=== PATIENT | male | born 1955 | race Caucasian/White ===

== ENCOUNTER 2019-07-17 18:58 | Inpatient (IN) | payer MEDICARE, OTHER, SELFPAY ==
[~2019-07-17] VITALS: Ht 165.1 cm; Wt 86.2 kg
[2019-07-17 19:00] VITALS: BP_SYST 138
--- NOTE | 2019-07-17 19:02 | NUR ---
Patient triaged and placed in tent area. VSS and patient appears in no acute distress at this time and MD notified of need for MSE.
--- NOTE | 2019-07-17 19:47 | NUR ---
ER Dr. Estes at bedside examining patient.
--- NOTE | 2019-07-17 20:01 | NUR ---
Patient to ER bed 07 to gown for evaluation. Side rails up. Report given to TAD Bowser
--- NOTE | 2019-07-17 20:20 | NUR ---
Patient alert and oriented x4 complaining of shortness of breath, left sided chest pain that started on 07/11/19 after his liver surgery. Patient states he came into today because his chest pain worsened and he woke up this morning at 230am with night sweats and a fever. His pain is rated at 5 out of 10 and feels sharp and worsens when he moves around. Patient arrived at the ER today with a fever of 100.3. Patient has a history of liver cirrhosis and liver cancer. Patient was tested for COVID 19 and received results negative on tuesday night. Patient denies cough. No other medical complaints at this time. Will continue to monitor.
--- NOTE | 2019-07-17 20:25 | NUR ---
# 18 gauge angiocath placed to RFA. Use of asceptic technique. Opsite placed over site. Blood return noted. Blood, blood culture, and lactic for lab drawn from site. Flushed with 10 cc of normal saline. No evidence of infiltration noted. Patient tolerated well.
--- NOTE | 2019-07-17 20:35 | NUR ---
COVID test swab done and sent to lab.
[2019-07-17 21:21] LABS: BASOPHILS % (AUTO) 0.5 % (0.0-2.0); EOSINOPHILS # (AUTO) 0.1 K/uL (0.0-0.4); EOSINOPHILS % (AUTO) 1.7 % (0.0-4.0); HEMATOCRIT 37.7 % (36-54); HEMOGLOBIN 12.7 g/dL (14.0-18.0); LYMPHOCYTES # (AUTO) 0.9 K/uL (1.0-5.5); LYMPHOCYTES % (AUTO) 16.2 % (20.5-51.5); MEAN CORPUSCULAR HEMOGLOBIN 29 pg (27-31); MEAN CORPUSCULAR HGB CONC 34 % (32-36); MEAN CORPUSCULAR VOLUME 87 fL (79.0-98.0); MONOCYTES # (AUTO) 0.8 K/uL (0.0-1.0); NEUTROPHILS % (AUTO) 68.6 % (40.0-70.0); PLATELET COUNT (AUTO) 149 K/uL (130-430); RED BLOOD CELL COUNT(AUTO) 4.33 MIL/uL (4.2-6.2); RED CELL DISTRIBUTION WIDTH 13.9 % (9.0-15.0); WHITE BLOOD COUNT (AUTO) 5.8 K/uL (4.8-10.8)
[2019-07-17 21:27] LABS: CALCIUM 8.8 mg/dL (8.4-11.0); CREATININE 0.91 mg/dL (0.55-1.30); POTASSIUM 3.9 mmol/L (3.5-5.1)
[2019-07-17 21:33] LABS: ALBUMIN 3.8 g/dL (3.4-4.8); C-REACTIVE PROTEIN QUANT 3.4 mg/dL (0-0.5); TOTAL BILIRUBIN 1.3 mg/dL (0.0-1.0)
[2019-07-17 21:45] LABS: PROTHROMBIN TIME 10.4 SECS (9.5-12.5)
[2019-07-17] MEDS ORDERED: AZITHROMYCIN 500 MG in NS 250 ML IV ONE (21:45)
[2019-07-17] MEDS ORDERED: PIPERACILLIN/TAZO 3.375 GM in NS 50 ML IV ONE (21:45)
[2019-07-17 21:59] LABS: BILIRUBIN,URINE NEGATIVE (NEGATIVE); BLOOD, URINE NEGATIVE (NEGATIVE); CLARITY/URINE CLEAR (CLEAR); COLOR,URINE YELLOW (YELLOW); GLUCOSE,URINE NEGATIVE (NEGATIVE); KETONES,URINE NEGATIVE (NEGATIVE); LEUKOCYTE ESTERASE ,URINE NEGATIVE (NEGATIVE); NITRITE, URINE NEGATIVE (NEGATIVE); PROTEIN URINE NEGATIVE (NEGATIVE); UROBILINOGEN,URINE 0.2 (0.2-1.0)
[2019-07-17] MEDS ORDERED: AZITHROMYCIN 500 MG/VIAL (ZITHROMAX) IV ONE (22:11)
[2019-07-17] MEDS ORDERED: PIPERACILLIN/TAZOBACTAM 3.375 GM/VIAL (ZOSYN) IV ONE (22:11)
[2019-07-17] MEDS ORDERED: SPIRIVA INH (22:17)
[2019-07-17] MEDS ORDERED: ALBMDI INH (22:17)
[2019-07-17] MEDS ORDERED: LOSA50TA3 PO (22:17)
[2019-07-17] MEDS ORDERED: DICL100G19 TP (22:23)
[2019-07-17] MEDS ORDERED: MULT-1089 PO (22:23)
[2019-07-17] MEDS ORDERED: OSCD500 PO (22:23)
[2019-07-17] MEDS ORDERED: ACET-2165 PO (22:23)
--- NOTE | 2019-07-17 22:25 | NUR ---
Medication reconciliation completed with information provided by Shantaiser Aubrey. Any prior medication reconciliation on file was reviewed and corrected.
[2019-07-17] MEDS ORDERED: NICO-681 TD (22:30)
--- NOTE | 2019-07-17 22:31 | NUR ---
Patient's code status is full code paperwork completed and placed in chart.
[2019-07-17] MEDS ORDERED: TRAM50TA2 PO (22:35)
[2019-07-17] MEDS ORDERED: SENN-278 PO (22:35)
[2019-07-17] MEDS ORDERED: ONDA4TAB5 PO (22:35)
[2019-07-17] MEDS ORDERED: FLUT1BLS14 PO (22:35)
--- NOTE | 2019-07-17 23:38 | NUR ---
Patient will be admitted to care of Dr. Landaverde. Admitted to tele unit. Will go to room 126B. Belongings list completed. Complete and up to date summary report printed. SBAR report to be given at bedside with opportunity for questions.
[2019-07-17] MEDS ORDERED: ALBUTEROL MDI INHALATION 8 GM INH INH PRN (23:45)
--- NOTE | 2019-07-17 23:45 | NUR ---
MRSA collected and sent to the lab.
--- NOTE | 2019-07-18 00:09 | NUR ---
Patient is sitting comfortably in bed talking on the phone. Vital signs stable.
[2019-07-18] MEDS ORDERED: traMADol HCL HCL 50 MG TABLET (ULTRAM) PO PRN (00:15)
[2019-07-18] MEDS ORDERED: ACETAMINOPHEN 650 MG/20.3 ML UDC PO PRN (00:15)
[2019-07-18] MEDS ORDERED: ALBUTEROL MDI INHALATION 8 GM INH INH SCH (01:00)
--- NOTE | 2019-07-18 01:20 | NUR ---
ADMISSION: The patient, SUSHILA MURPHY, 63 y/o, M admitted by ARMAND DELAROSA MD, was given written information regarding hospital policies, unit procedures and contact persons. Valuables were checked and . Addendum: 07/18/19 at 0122 by Aspen Calderón RN Disregard above notes.
--- NOTE | 2019-07-18 01:30 | NUR ---
ON PHONE WITH FRIEND: Patient is currently sitting in a chair at bedside on the phone with his friend. No acute distress noted. No new needs at this time. Will continue to monitor. Addendum: 07/19/19 at 0304 by Isadora Mcfarland RN entered on the wrong date
--- NOTE | 2019-07-18 01:34 | NUR ---
Transfer to tele via ACLS protocol. Licensed nurse present. IV present no signs or symptoms of infiltration.
--- NOTE | 2019-07-18 02:03 | NUR ---
ADMISSION NOTE Received patient from ER via bren, received report from Mague MISHRA. Patient admitted with diagnosis of PNEUMONIA, FEVER R/O COVID. Patient oriented to hospital routine, call light, toileting and safety-patient verbalized understanding. ADMIT NOTE Received pt from ER to the floor with a diagnosis of []. Admission process initiated. patient oriented to pain management, safety and call light-teach back done.
--- NOTE | 2019-07-18 02:30 | NUR ---
Initial RN notes Received pt from ED via bren. Pt AAOx4, VSS, afrebrile. O2 sat 94-95% on room air. No acute distress. Pt denies any chest pain but c/o slight sob. Abd scars noted and R. lower abd bruise noted. IV saline lock R. FA 18G good blood return. Oriented to room/call light use, pt verbalized understanding. CAll light within reach. Bed low, locked, siderails up x2. To monitor.
[2019-07-18 02:45] VITALS: BP_SYST 144
--- NOTE | 2019-07-18 04:08 | NUR ---
CONSULTATION PAGED/CALLED Reason for Consultation: FEVER,PNA,R/O COVID Person Who was Notified: RON Consulting Physician: Organ Builder Specialty: Ordering Physician:
[2019-07-18] MEDS ORDERED: PIPERACILLIN/TAZOBACTAM 3.375 GM/VIAL (ZOSYN) IV ONE (05:48)
--- NOTE | 2019-07-18 05:57 | NUR ---
I PAGED DR. MOSS HE IS AWARE OF THE CONSULT.
[2019-07-18] MEDS ORDERED: PIPERACILLIN/TAZO 3.375 GM in NS 50 ML IV SCH (06:00)
--- NOTE | 2019-07-18 06:00 | NUR ---
Closing notes Pt AAO, ambulated to the bathroom, pt states she had a BM and urinated. No c/o pain or sob. IV antibiotic administered at ordered rate R. FA 18G good blood return. Call light within reach. Bed low, locked, siderails up x2. To endorse to AM nurse.
[2019-07-18 07:04] LABS: BASOPHILS % (AUTO) 0.5 % (0.0-2.0); EOSINOPHILS # (AUTO) 0.1 K/uL (0.0-0.4); EOSINOPHILS % (AUTO) 1.3 % (0.0-4.0); HEMATOCRIT 38.2 % (36-54); HEMOGLOBIN 12.9 g/dL (14.0-18.0); LYMPHOCYTES # (AUTO) 0.6 K/uL (1.0-5.5); LYMPHOCYTES % (AUTO) 12.2 % (20.5-51.5); MEAN CORPUSCULAR HEMOGLOBIN 29 pg (27-31); MEAN CORPUSCULAR HGB CONC 34 % (32-36); MEAN CORPUSCULAR VOLUME 87 fL (79.0-98.0); MONOCYTES # (AUTO) 0.8 K/uL (0.0-1.0); MONOCYTES % (AUTO) 17.4 % (1.7-9.3); NEUTROPHILS # (AUTO) 3.1 K/uL (1.8-7.7); NEUTROPHILS % (AUTO) 68.6 % (40.0-70.0); PLATELET COUNT (AUTO) 133 K/uL (130-430); RED BLOOD CELL COUNT(AUTO) 4.39 MIL/uL (4.2-6.2); RED CELL DISTRIBUTION WIDTH 14.1 % (9.0-15.0); WHITE BLOOD COUNT (AUTO) 4.6 K/uL (4.8-10.8)
--- NOTE | 2019-07-18 07:20 | NUR ---
RECEIVED PATIENT AAOX 4. VITALS SIGNS STABLE. AFEBRILE LUNGS BILATERALLY CLEAR. ABDOMEN SOFT AND NON DISTENDED. AMBULATORY GOES TO THE BATHROOM. WILL CONTINUE TO MONITOR PATIENTS STATUS. HAS IV ACCESS ON THE RT FOREARM #22. SALINE LOCK. BED LOW POSITION, ALARMED AND LOCKED. WILL CONTINUE TO MONITOR PATIENTS STATUS.
[2019-07-18 07:33] LABS: ALBUMIN 3.5 g/dL (3.4-4.8); CALCIUM 8.9 mg/dL (8.4-11.0); CREATININE 0.99 mg/dL (0.55-1.30); POTASSIUM 4.1 mmol/L (3.5-5.1); TOTAL BILIRUBIN 1.6 mg/dL (0.0-1.0)
[2019-07-18 08:00] VITALS: BP_SYST 150
--- NOTE | 2019-07-18 08:00 | NUR ---
WENT TO THE BATHROOM AND VOIDED X 2.
[2019-07-18 08:27] LABS: THYROID STIMULATING HORMONE 1.25 uIu/mL (0.34-4.82)
[2019-07-18] MEDS: FAMOTIDINE 20 MG TABLET PO SCH (08:35)
[2019-07-18] MEDS: NICOTINE 21 MG/24 HR PATCH.TD24 TD SCH (08:35)
[2019-07-18] MEDS: LOSARTAN POTASSIUM 50 MG TABLET (COZAAR) PO SCH (08:35)
[2019-07-18 08:36] LABS: ERYTHROCYTE SEDIMENTATION RATE 18 MM/HR (0-15)
--- NOTE | 2019-07-18 09:00 | NUR ---
MEDS DUE GIVEN ORDERED.
--- NOTE | 2019-07-18 11:54 | NUR ---
Case mgt: Rec'd a call from Giuliano Garzon case management coordinator at [phone] requesting clinical update-Duran is aware pt is Covid-pending results status in isolation and asked if pt is stable for transfer to contracted hospital-if so, ask if pt is agreeable for transfer and fax transfer order to him at [phone]--I s/w pharmacist in charge Zeny about this information-She will call Dr. Landaverde and find out if pt is agreeable for transfer to contracted hospital--radiology is making CD and I will prepare transfer packet for nursing unit--KHUSHI MISHRA
[2019-07-18] MEDS ORDERED: cefTRIAXone 1 GM in D5W 50 ML IV SCH (12:00)
[2019-07-18] MEDS ORDERED: ENOXAPARIN SODIUM 40 MG/0.4 ML SYRINGE SUBCUT ONE (12:00)
--- NOTE | 2019-07-18 12:00 | NUR ---
NO SOB NOR PAIN NOR CHEST PAIN NOTED. NO OXYGEN
[2019-07-18] MEDS ORDERED: AZITHROMYCIN 500 MG in NS 250 ML IV SCH (13:00)
--- NOTE | 2019-07-18 13:30 | NUR ---
SITTING ON THE CHAIR WHILE EATING LUNCH. IV ANTIBIOTIC GIVEN.
[2019-07-18 13:36] VITALS: BP_SYST 150
--- NOTE | 2019-07-18 13:43 | NUR ---
Case mgt: S/W christ Garzon from [place]--per charge nurse Zeny, pt/ indicated pt had a negative Covid test at [place] a few days ago. Duran faxed me those results, which were taken to charge nurse Zeny-Mayra said she will call Dr. Landaverde with those results and f/u for transfer order, and Mayra indicates pt/ agreeable to transfer to [facility]. TAD
[2019-07-18] MEDS ORDERED: COMMUNICATION ORDER XX ONE (14:45)
[2019-07-18] MEDS ORDERED: BUPR1FIL SL (14:47)
--- NOTE | 2019-07-18 15:11 | NUR ---
PATIENT SLEEPING VERBALIZED HE IS VERY TIRED. METHADONE BROUGHT TO PHARMACY. AWAITING FOR THE METHADONE TO BE FIXED BY PHARMACY. FOLLOW UP
--- NOTE | 2019-07-18 15:16 | NUR ---
Case mgt:Attempted to call pt's room for dcpa-no answer--pt Covid test pending--I called pt's to ask about ADLs-Per Ana Maria, pt is independent with ADLs, drives a car--Ana Maria aware pt may be transferred to [facility], once [place] has a bed for pt--she indicates pt is aware of this--KHUSHI MISHRA
--- NOTE | 2019-07-18 15:24 | NUR ---
Case mgt: Faxed transfer to [facility] hospital order to Giuliano GARCIA fax#[phone]--Duran [facility] at [phone]--Per Duran, [facility] cannot take pt until our Covid-19 testing is completed/resulted--Duran has MST ph# for f/u--KHUSHI MISHRA Addendum: 07/18/19 at 1530 by Graciela Hernandez RN Transfer packet placed at nursing station with rosemary GE RN
--- NOTE | 2019-07-18 19:15 | NUR ---
OPENING NOTE: Patient is awake, AOx4. No acute distress noted. Breathing is even and unlabored. IV site is patent without signs of infection or infiltration. Bed alarm is locked in lowest position, bed alarm not indicated as patient is ambulatory with a steady gait. Call light with patient. Patient has been educated on importance and use of call light. Patient verbalized understand and demonstrated proper use. Will continue to monitor.
--- NOTE | 2019-07-18 19:45 | NUR ---
ENDORSED TO INCOMING NURSE MARK RN
[2019-07-18 20:00] VITALS: BP_SYST 141
[2019-07-18] MEDS ORDERED: SENNOSIDES/DOCUSATE SODIUM 1 TAB TABLET(SENOKOT-S) PO SCH (21:00)
[2019-07-18] MEDS ORDERED: BUPRENORPHINE SL SCH (21:00)
[2019-07-18] MEDS ORDERED: [UNRECOGNIZED DRUG - OTHER] SL SCH (21:00)
--- NOTE | 2019-07-18 21:30 | NUR ---
PATIENT AGGRESSIVE/UPSET/EDUCATED PATIENT ON DIRECTIONS OF MEDICATION/MOVED ROOMS: Patient's called and spoke to me about the condition of the patient's room stating their had been leak and she was concerned about the patient's safety. She also mentioned that patient needed his home medication which she brought during the dayshift at 1200 and was concerned because the patient is on withdrawal from opioids. During change of shift it was reported to me that patient had asked during dayshift to be put in a different room, at this time, my charge nurse had let me know that accommodations had been made to move the patient to another room. I hung up with the and headed over to the patient's room. When the door was opened the patient yelled "Get out of here" and slammed the door on TAD Johns. I then went to the call light phone and tried speaking with the patient to ask if he was okay to move rooms at this time. Patient started cussing and threatening to get violent if he did not change rooms or receive his medication. Security was called. Security and myself went back to the patient's room to try and de-escalate the situation. The patient was still very upset and stated "All I want is my medication." I retrieved the medication for the patient with the ordered dose and the patient then stated "I have been taking this medication for 3 years, I only talk a quarter of the tablet 4x a day to equivalent one pill for the whole day" I then read and educated the patient of the dose that had been on the bottle, however, he refused to take the ordered dose and cut the pill himself and took it. He then was more calm and was willing to move rooms. We transfered the patient to a new room and he then apologized for his behavior. Patient was no longer aggressive or very upset. I met all his needs at this time and told him I would be back to check in on him again.
--- NOTE | 2019-07-18 22:22 | NUR ---
Pagejohanna Landaverde for Nurse Isadora. Addendum: 07/18/19 at 2233 by Nat Kolb RN Left message with [facility] [employer].
--- NOTE | 2019-07-18 22:45 | NUR ---
SPOKE WITH DR. LANDAVERDE: Spoke with Dr. Landaverde regarding the dosage of the medication from home the patient takes. New orders were made. Also let MD patient was asking to shower, MD said that was fine and patient could be D/C from telemetry. Will carry out all new orders accordingly.
--- NOTE | 2019-07-18 23:15 | NUR ---
SUPPLIED PATIENT WITH BATHING/HYGIENE SUPPLIES: Patient was given everything he needed to shower. Patient is independent and does not need assistance showering. Patient has no new needs at this time. Will continue to monitor.
[2019-07-19] VITALS: BP_SYST 135
--- NOTE | 2019-07-19 01:30 | NUR ---
ON PHONE WITH FRIEND: Patient is currently sitting in a chair at bedside on the phone with his friend. No acute distress noted. No new needs at this time. Will continue to monitor.
--- NOTE | 2019-07-19 03:05 | NUR ---
ROUNDS: Patient resting at this time. Breathing is even and unlabored. Bed locked in lowest position, call light with patient. Will continue to monitor.
[2019-07-19] MEDS ORDERED: COMMUNICATION ORDER XX ONE (04:30)
--- NOTE | 2019-07-19 05:45 | NUR ---
SNACKS PROVIDED: Patient asked for snacks, snacks provided at this time. No other needs. Will continue to monitor.
[2019-07-19 06:17] LABS: BASOPHILS % (AUTO) 0.6 % (0.0-2.0); EOSINOPHILS # (AUTO) 0.1 K/uL (0.0-0.4); EOSINOPHILS % (AUTO) 1.6 % (0.0-4.0); HEMATOCRIT 38.9 % (36-54); HEMOGLOBIN 13.4 g/dL (14.0-18.0); LYMPHOCYTES % (AUTO) 19.3 % (20.5-51.5); MEAN CORPUSCULAR HEMOGLOBIN 30 pg (27-31); MEAN CORPUSCULAR HGB CONC 34 % (32-36); MEAN CORPUSCULAR VOLUME 87 fL (79.0-98.0); MONOCYTES # (AUTO) 0.8 K/uL (0.0-1.0); MONOCYTES % (AUTO) 14.5 % (1.7-9.3); NEUTROPHILS # (AUTO) 3.5 K/uL (1.8-7.7); PLATELET COUNT (AUTO) 183 K/uL (130-430); RED BLOOD CELL COUNT(AUTO) 4.48 MIL/uL (4.2-6.2); RED CELL DISTRIBUTION WIDTH 14.1 % (9.0-15.0); WHITE BLOOD COUNT (AUTO) 5.4 K/uL (4.8-10.8)
[2019-07-19 06:28] LABS: ALBUMIN 3.7 g/dL (3.4-4.8); CALCIUM 9.5 mg/dL (8.4-11.0); CREATININE 0.98 mg/dL (0.55-1.30); POTASSIUM 3.8 mmol/L (3.5-5.1); TOTAL BILIRUBIN 1.1 mg/dL (0.0-1.0)
--- NOTE | 2019-07-19 06:30 | NUR ---
CLOSING NOTE: Patient is awake, AOx4. No acute distress noted. Breathing is even and unlabored. IV site is patent without signs of infection or infiltration. Awaiting call back from MD Gaviria to let him know about patient negative COVID results. All fall/safety/isolation precautions maintained throughout the shift. All needs met throughout the shift. Will continue to monitor until endorsement of care to dayshift nurse.
--- NOTE | 2019-07-19 06:55 | NUR ---
PAGED PAGED BRITTNI BENITO AT [phone] SPOKE WITH YIN.
--- NOTE | 2019-07-19 07:10 | NUR ---
opening note bedside sbar from night RN, patient is in bed, awake, alert, respirations even, non labored, bed in low and locked position, call light within reach
[2019-07-19 08:00] VITALS: BP_SYST 136
--- NOTE | 2019-07-19 08:24 | NUR ---
2ND PAGE OUT TO RENETTA RAND AT [phone] SPOKE WITH ESTEVAN.
[2019-07-19] MEDS: FAMOTIDINE 20 MG TABLET PO SCH (08:41)
[2019-07-19] MEDS: LOSARTAN POTASSIUM 50 MG TABLET (COZAAR) PO SCH (08:42)
[2019-07-19] MEDS: NICOTINE 21 MG/24 HR PATCH.TD24 TD SCH (08:43)
[2019-07-19] MEDS ORDERED: ENOXAPARIN SODIUM 40 MG/0.4 ML SYRINGE SUBCUT SCH (09:00)
[2019-07-19] MEDS ORDERED: BUPRENORPHINE SL SCH (09:00)
[2019-07-19] MEDS ORDERED: [UNRECOGNIZED DRUG - OTHER] SL SCH (09:00)
--- NOTE | 2019-07-19 09:30 | NUR ---
nurse notes patient sitting in chair, respirations even, non labored, call light within reach,
--- NOTE | 2019-07-19 10:13 | NUR ---
DC PLANNING Called & spoke with Jonathan @ [facility], ph [phone], CM assigned is Duran, on phone. Left msg Covid results neg. Duran Nobles CM, ph [phone].
--- NOTE | 2019-07-19 10:30 | NUR ---
nurse notes patient in bed eyes closed, respirations even, non labored, bed in low and locked position, call light within reach
--- NOTE | 2019-07-19 11:42 | NUR ---
DC PLANNING Received call back from Duran @ [facility], wanted another transfer order from today faxed. Received order, faxed transfer order to Duran along with Eddi neg results, MAR, labs from today. Has Dr Landaverde's cell & office ph, nsg station direct #. Left msg with pt's nurse, Charge nurse aware. Called & spoke with pt & updated, agreeable with transfer wants [facility]. Pt anxious to leave, states if does not leave later today he will go AMA & go to [facility] directly. CD ordered. Addendum: 07/19/19 at 1148 by Nickie Ledesma RN add to note above, per pt no need to call family he is on his cell phone with his & will updated her.
[2019-07-19 12:00] VITALS: BP_SYST 136
--- NOTE | 2019-07-19 12:30 | NUR ---
nurse notes patient requested second tray for lunch, dietary called
[2019-07-19 13:52] VITALS: BP_SYST 136
--- NOTE | 2019-07-19 14:00 | NUR ---
PT TRANSFERRED Report given to Jordyn at [facility]. Transfer packet with Transfer Orders and Medication Reconciliation form given to EMT with report. Exitcare provided. [facility] ID band removed, replaced with ID band with pt's name and . All belongings sent with patient. Patient left floor via gurney escorted by EMT in no distress.
== END 2019-07-19 14:45 | disposition short-term general hospital (02) | DRG 194 ==
LOC: SED 18:58 → EEVIPCON 23:34 → STU 23:34
PROVIDERS: ADMIT Internal Medicine; ATTEND Internal Medicine
DX: J18.9 Pneumonia, unspecified organism (principal); F11.20 Opioid dependence, uncomplicated; C22.9 Malignant neoplasm of liver, not specified as primary or secondary; I10 Essential (primary) hypertension; D72.810 Lymphocytopenia; F17.210 Nicotine dependence, cigarettes, uncomplicated; Z20.828 Contact with and (suspected) exposure to other viral communicable diseases; Z79.899 Other long term (current) drug therapy
CPT/HCPCS: 36415; 36600; 71045; 80053; 81003; 82550-TC; 82728; 82803-TC; 83605; 83615-TC; 83735-TC; 83880; 84443-TC; 84484; 85025; 85379; 85384-TC; 85610-TC; 85651-TC; 85730-TC; 86140; 87040-TC; 87086; 93005; 96365; 96367; 99285; G0378; J0456; J0696; J1650; J2543; J7050; J7060; U0002; U0003-CS

== ENCOUNTER 2022-02-02 15:30 | Emergency (ER) | payer MEDICARE, OTHER ==
[~2022-02-02] VITALS: Ht 167.6 cm; Wt 81.6 kg
[~2022-02-02 15:30] MED LIST: ALBMDI INH; BUPR1FIL SL; NICO-737 TD
[2022-02-02 15:44] VITALS: BP_SYST 156
== END 2022-02-02 18:14 | disposition left against medical advice (07) ==
LOC: SED 15:30
DX: S11.93XA Puncture wound without foreign body of unspecified part of neck, initial encounter (principal); Z53.21 Procedure and treatment not carried out due to patient leaving prior to being seen by health care provider; W55.01XA Bitten by cat, initial encounter; Y93.89 Activity, other specified; Y92.89 Other specified places as the place of occurrence of the external cause; Y99.8 Other external cause status

== ENCOUNTER 2023-10-14 10:09 | Emergency (ER) | payer MEDICARE, OTHER ==
[~2023-10-14] VITALS: Ht 162.6 cm; Wt 65.8 kg
[2023-10-14 10:14] VITALS: BP_SYST 111; PULSE 67; RESP 18; TEMP 98.5; O2SAT 97
[2023-10-14 11:02] LABS: BILIRUBIN,URINE NEGATIVE (NEGATIVE); BLOOD, URINE NEGATIVE (NEGATIVE); CLARITY/URINE CLEAR (CLEAR); COLOR,URINE YELLOW (YELLOW); GLUCOSE,URINE NEGATIVE (NEGATIVE); KETONES,URINE NEGATIVE (NEGATIVE); LEUKOCYTE ESTERASE ,URINE NEGATIVE (NEGATIVE); NITRITE, URINE NEGATIVE (NEGATIVE); PH,URINE 5.5 (5.0-8.0); PROTEIN URINE NEGATIVE (NEGATIVE); UROBILINOGEN,URINE 0.2 (0.2-1.0)
[2023-10-14 12:09] VITALS: BP_SYST 111; PULSE 67; RESP 18; TEMP 98.5; O2SAT 97
== END 2023-10-14 11:48 | disposition home or self-care (01) ==
LOC: SED 10:09
DX: R30.0 Dysuria (principal); I10 Essential (primary) hypertension; Z85.05 Personal history of malignant neoplasm of liver; Z79.899 Other long term (current) drug therapy; Z79.2 Long term (current) use of antibiotics
CPT/HCPCS: 81001; 81003; 99283